=== PATIENT | male | born 1945 | race Caucasian/White ===

== ENCOUNTER → 2016-12-14 | Outpatient (CLI) | payer OTHER ==
[~2016-12-14] MED LIST: ASCO10003 PO; ASPEC81 PO; CHOL1CAP57 PO; FLNIN NAE; HYDR-5688 PO; LOSA50TA54 PO; MULT-506 PO; POTASSIUM OTC PO; SAW PALMETTO PO; XNX25 PO; ZINC1TAB PO; [UNRECOGNIZED DRUG - CODE] PO
== END | disposition home or self-care (01) ==
LOC: C.PATHSPEC 10:54
PROVIDERS: ATTEND Plastic Surgery
DX: L57.0 Actinic keratosis (principal); L82.1 Other seborrheic keratosis

== ENCOUNTER → 2017-03-20 | Outpatient (CLI) | payer OTHER ==
[2017-03-20 13:22] LABS: ALT/SGPT 52 U/L (12-78); AST/SGOT 32 U/L (15-37); BLOOD UREA NITROGEN 18 mg/dl (7-18); BUN/CREATININE RATIO 13.1 (10-20); CALCIUM 8.4 mg/dl (8.5-10.1); CARBON DIOXIDE 25 mmol/L (21-32); CHLORIDE 106 mmol/L (98-107); CREATININE 1.34 mg/dl (0.60-1.40); GLUCOSE 135 mg/dl (70-99); SODIUM 138 mmol/L (136-145)
[2017-03-20 13:27] LABS: CHOLESTEROL 151 mg/dl (0-200); HDL CHOLESTEROL 30 mg/dl; LDL CHOLESTEROL CALCULATED 54 mg/dl; PROSTATE SPECIFIC ANTIGEN 0.198 ng/ml (0.000-4.000); TRIGLYCERIDES 337 mg/dl (0-150); VERY LOW DENSITY LIPOPROT CALC 67 mg/dl
--- NOTE | 2017-04-11 13:43 | CODING QUERY MEDICAL NECESSITY ---
CQSUPPORTING DIAGNOSIS NEEDED A supporting diagnosis is required for the test/procedure performed on this patient in order for us to be reimbursed by the patient's insurance. Please provide a supporting diagnosis for the following test/procedure listed below next to the test name along with your signature. *If there is no additional diagnosis for this patient that would support the following test/procedure please document that below next to the test/procedure. Test(s)/Procedure(s) that require a supporting diagnosis: DOS 03/20/17 PROSTATE SPECIFIC TEST Provider Signature: Date: Thank you Addis Guzman [employer] Once completed, please kindly fax back to [phone] For questions please call [phone]
== END | disposition home or self-care (01) ==
LOC: C.LABMFLN 08:37
PROVIDERS: ATTEND Family Medicine
DX: E78.5 Hyperlipidemia, unspecified (principal); I10 Essential (primary) hypertension

== ENCOUNTER 2024-11-19 07:10 | Inpatient (IN) ==
--- NOTE | 2024-10-26 15:09 | PAT Medication Instructions ---
Medication Instructions Date of Service October 26, 2024 Home Medications Medication Instructions Recorded ascorbic acid (vitamin C) 1,000 mg 1 gm PO DAILY #90 tabs 12/31/18 tablet aspirin 81 mg tablet,delayed 81 mg PO DAILY #90 tabs 12/31/18 release (Adult Low Dose Aspirin) multivitamin,qy-tqmv-lhpanrsc 1 tab PO DAILY #30 tabs 12/31/18 (Complete Multivitamin tablet) vitamin E (dl, acetate) 450 mg 1,000 units PO DAILY #30 caps 12/31/18 (1,000 unit) capsule zinc acetate 50 mg (zinc) capsule 50 mg PO DAILY #30 caps 12/31/18 fluticasone propionate 50 2 spray intranasal DAILY #47.4 11/05/23 mcg/actuation nasal grams spray,suspension propranolol 20 mg tablet 20 mg PO BID #180 tabs 01/24/24 alprazolam 0.5 mg tablet 0.5 mg PO BID PRN anxiety #60 tabs 09/02/24 hydrocortisone 2.5 % topical cream 1 applic topical BID #30 grams 10/07/24 ascorbic acid (vitamin C) 1,000 mg tablet 1 gm PO DAILY aspirin 81 mg tablet,delayed release (Adult Low Dose Aspirin) 81 mg PO DAILY multivitamin,[id number] (Complete Multivitamin tablet) 1 tab PO DAILY vitamin E (dl, acetate) 450 mg (1,000 unit) capsule 1,000 units PO DAILY zinc acetate 50 mg (zinc) capsule 50 mg PO DAILY riboflavin (vitamin B2) 100 mg tablet 100 mg PO DAILY thiamine HCl (vitamin B1) 100 mg tablet 100 mg PO DAILY fluticasone propionate 50 mcg/actuation nasal spray,suspension 2 spray intranasal DAILY propranolol 20 mg tablet 20 mg PO BID ] alprazolam 0.5 mg tablet 0.5 mg PO BID PRN anxiety hydrocortisone 2.5 % topical cream 1 applic topical BID amoxicillin 875 mg tablet mg PO losartan 50 mg tablet 50 mg PO QAM nystatin 100,000 unit/gram topical cream 1 applic topical BID PRN skin irriation omega-3 fatty acids 1,000 mg capsule 2,000 mg PO QAM potassium 99 mg tablet 99 mg PO QAM Continue as directed fluticasone propionate 50 mcg/actuation nasal spray,suspension 2 spray intranasal DAILY amoxicillin 875 mg tablet mg PO STOP taking 2 weeks before surgery vitamin E (dl, acetate) 450 mg (1,000 unit) capsule 1,000 units PO DAILY zinc acetate 50 mg (zinc) capsule 50 mg PO DAILY omega-3 fatty acids 1,000 mg capsule 2,000 mg PO QAM STOP taking 24 hours before surgery hydrocortisone 2.5 % topical cream 1 applic topical BID nystatin 100,000 unit/gram topical cream 1 applic topical BID PRN skin irritation DO NOT take the morning of surgery ascorbic acid (vitamin C) 1,000 mg tablet 1 gm PO DAILY multivitamin,[id number] (Complete Multivitamin tablet) 1 tab PO DAILY riboflavin (vitamin B2) 100 mg tablet 100 mg PO DAILY thiamine HCl (vitamin B1) 100 mg tablet 100 mg PO DAILY losartan 50 mg tablet 50 mg PO QAM potassium 99 mg tablet 99 mg PO QAM Take morning of surgery With a small sip of water, OTHERWISE NOTHING TO EAT OR DRINK AFTER MIDNIGHT: aspirin 81 mg tablet,delayed release (Adult Low Dose Aspirin) 81 mg PO DAILY (unless surgeon directed otherwise) propranolol 20 mg tablet 20 mg PO BID alprazolam 0.5 mg tablet 0.5 mg PO BID PRN anxiety (if needed) Take evening before surgery propranolol 20 mg tablet 20 mg PO BID alprazolam 0.5 mg tablet 0.5 mg PO BID PRN anxiety (if needed) Other Notes If you have any questions please call us at [phone] or [phone] or [phone] or [phone]
--- NOTE | 2024-10-29 08:51 | Anesthesiology Consultation ---
Date of Service October 29, 2024 Assessment & Plan (1) Encounter for pre-operative examination: - Check BSG DOS - Infectious disease screening: Per assessment on 10/29/24- No known recent infectious disease contacts or current infectious disease symptoms. - PCP visit (10/26/24): "Ultrasound of left arm showed several left underarm lymph nodes. The largest was 3.3 x 1.[address] Guidry could not clearly feel any of the lymph nodes on his exam. He has another ultrasound ordered. With your history of cat scratches if he finds persistent swollen glands I would try doxycycline 2 times daily for 10 days before getting a biopsy. This is particularly good for Bartonella infection which can happen with cat scratches.. For the vein insufficiency and history of recurrent cellulitis you are using the triamcinolone cream up to 2 times daily as needed. Knee high Support stockings can be of benefit as well.. For the low back pain radiating to both gluteal areas you are to have surgery by Dr Bean on L2 and L3 on 11-19.. For the rash in the groin it has done better with the nystatin cream that you can use 2 times daily as needed.. Blood pressure is well controlled. Doing well with the losartan 50 milligrams daily. Electrolytes and kidney functions are normal. Recheck kidney functions and electrolytes in 6 months.. Sugar had been in the borderline or prediabetic range. We will check the hemoglobin A1c and sugar in 6 months.." Chart Review Chart Review: Acceptable Risk for Surgery (pending evaluation DOS) and Patient seen in Pre Admission Testing Teaching & Discussion Pre-Anesthesia Teaching/Discussion Notes: Instructed NPO after midnight before surgery,except medications with 15 cc of water. Medication instructions provided according to the PAT guidelines. History Surgery Operation Date: 11/19/24 07:45 Proposed Procedures p L2-L4 Decompression, L2-L5 Fusion, L4-L5 Hardware Removal, Spinal Cord Monitoring - Todd Montejo, Height/Weight Height: 5 ft 6.5 in Weight: 103.6 kg Allergies Allergy/AdvReac Type Severity Reaction Status Date / Time Sulfa (Sulfonamide Allergy Mild Skin Verified 10/29/24 08:46 Antibiotics) erruption (ear) Medications Home Medications Medication Instructions Recorded Confirmed Last Taken ascorbic acid (vitamin C) 1,000 mg 1 gm PO DAILY #90 tabs 12/31/18 10/26/24 Unknown tablet aspirin 81 mg tablet,delayed 81 mg PO DAILY #90 tabs 12/31/18 10/26/24 Unknown release (Adult Low Dose Aspirin) multivitamin,yr-uxtk-[id number] 1 tab PO DAILY #30 tabs 12/31/18 10/26/24 Unknown (Complete Multivitamin tablet) vitamin E (dl, acetate) 450 mg 1,000 units PO DAILY #30 caps 12/31/18 10/26/24 Unknown (1,000 unit) capsule zinc acetate 50 mg (zinc) capsule 50 mg PO DAILY #30 caps 12/31/18 10/26/24 Unknown riboflavin (vitamin B2) 100 mg 100 mg PO DAILY 10/03/23 10/26/24 Unknown tablet thiamine HCl (vitamin B1) 100 mg 100 mg PO DAILY 10/03/23 10/26/24 Unknown tablet fluticasone propionate 50 2 spray intranasal DAILY #47.4 11/05/23 10/26/24 Unknown mcg/actuation nasal grams spray,suspension propranolol 20 mg tablet 20 mg PO BID #180 tabs 01/24/24 10/26/24 Unknown alprazolam 0.5 mg tablet 0.5 mg PO BID PRN anxiety #60 tabs 09/02/24 10/26/24 Unknown hydrocortisone 2.5 % topical cream 1 applic topical BID #30 grams 10/07/24 10/26/24 Unknown amoxicillin 875 mg tablet mg PO 10/26/24 10/26/24 Unknown losartan 50 mg tablet 50 mg PO QAM 10/26/24 10/26/24 Unknown nystatin 100,000 unit/gram topical 1 applic topical BID PRN skin 10/26/24 10/26/24 Unknown cream irriation omega-3 fatty acids 1,000 mg 2,000 mg PO QAM 10/26/24 10/26/24 Unknown capsule potassium 99 mg tablet 99 mg PO QAM 10/26/24 10/26/24 Unknown Past Medical History Medical History Anxiety Chronic back pain Dermatitis History of COVID-19 (04/2024) mild symtoms, resolved HLD (hyperlipidemia) Hx of basal cell carcinoma Hypertension Hypothyroidism Lumbar stenosis with neurogenic claudication Peripheral neuropathy Prediabetes Per records, patient denies 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 forearm Venous insufficiency of lower extremity Exercise / Class Metabolic Activity II 4-5 Yardwork/Stairs/Walk up hill (one FS: No CP, no SOB) Past Family History Family History Mother CHF (congestive heart failure) Father CHF (congestive heart failure) Grandmother (Maternal) Cancer Grandfather (Maternal) Cancer Other Prostate cancer Past Surgical History Surgical History History of back surgery (2009) L4-5 History of dental surgery 10/27/24 teeth extraction, implant History of ear surgery Saliva gland, chin area Hx of basal cell carcinoma excision Hx of colonoscopy Hx of squamous cell carcinoma excision Past Anesthesia History No Hx of Anesthesia Complications and No Family Hx of Anesthesia Complications History of PONV No Hx of PONV and No Hx of Motion Sickness Social History Smoking Status: Never smoker Do You Dip or Chew Tobacco: No Hx Alcohol Use: Yes Alcohol type: hard liquor alcohol intake frequency: 0-2 drinks per day (1 shot per night prior to bed) Hx Substance Use: No substance use type: does not use Review of Systems Patient denies chest pain, shortness of breath, dyspnea on exertion, fever, chills, cough, wheezing. Physical Exam Vital Signs BP 119/60 P 62 TEMP 98.7 SP02 96%RA RESP 16 Physical Full cervical extension range of motion. Full TMJ range of motion. TMD 3 finger breaths Mallampati Score III Dentition: missing teeth, + implants/dental restorations, upper front crowns /caps Lungs: clear throughout to auscultation Cardiac: regular rate and rhythm, no murmurs noted Spine: normal Carotid arteries: negative bruit Extremities: no LE edema Lab Results Anesthesia Preop Results Results Anesthesia Widget: WBC 8.76 K/ul (4.8-10.8) 10/29/24 Hgb 15.5 g/dl (14.0-18.0) 10/29/24 Hct 46.5 % (42.0-52.0) 10/29/24 Plt 253 K/uL (130-400) 10/29/24 Na 138 mmol/L (136-145) 10/29/24 K 4.3 mmol/L (3.5-5.1) 10/29/24 Cl 106 mmol/L (98-107) 10/29/24 CO2 25 mmol/L (21-32) 10/29/24 BUN 16 mg/dl (6-23) 10/29/24 Creat 1.15 mg/dl (0.6-1.4) 10/29/24 Glucose Level 139 mg/dl (70-99(Fasting)) H 10/29/24 PT 10.9 Seconds (9.0-12.0) 10/29/24 PTT 28 Seconds (21-31) 10/29/24 INR 1.0 (0.9-1.1) 10/29/24 Urine Color Dark Yellow 10/29/24 Urine Appearance Clear (Clear) 10/29/24 Urine pH 5.5 (4.5-7.5) 10/29/24 Urine Specific [place] 1.019 (1.000-1.030) 10/29/24 Urine Protein Negative (Negative) 10/29/24 Urine Glucose (UA) Negative (Negative) 10/29/24 Urine Ketones Trace (Negative) H 10/29/24 Urine Blood Negative (Negative) 10/29/24 Urine Nitrite Negative (Negative) 10/29/24 Urine Bilirubin Negative (Negative) 10/29/24 Urine Urobilinogen Negative (Negative) 10/29/24 Urine Leukocyte Esterase Negative (Negative) 10/29/24 Blood Type O Positive 10/29/24 Antibody Screen NEGATIVE 10/29/24 Testing Laboratory Results HGBA1C 04/16/24: 5.4% Electrocardiogram Date: 10/29/24 NSR at 65bpm. "Normal ECG" Chest X-Ray Date: 05/25/24 Findings: + NAD Stress Test Date: 09/21/22 No evidence of inducible ischemia at workload achieved. Poor exercise tolerance which limits exam sensitivity. 4.60 METS. 98% MPHR. Rest Echo: EF 64%. No significant valvular disease.
[2024-11-19] MEDS: LR 15ML/HR IV SCH (08:03)
[2024-11-19] MEDS: ACETAMINOPHEN 500 MG TAB PO SCH (08:05)
[2024-11-19] MEDS: GABAPENTIN 300 MG CAP PO SCH (08:05)
[2024-11-19] MEDS: CeleBREX 200 MG CAP PO SCH (08:05)
[2024-11-19] MEDS ORDERED: ATROPINE SULFATE 0.1 MG/ML 10ML SYR IV PRN (08:54)
[2024-11-19] MEDS ORDERED: ONDANSETRON INJ 2 MG/ML 2 ML VIAL IV PRN ×2 (08:54→14:48)
[2024-11-19] MEDS ORDERED: HYDROmorphone INJ 1 MG/ML SYRINGE IV PRN ×2 (08:54→14:48)
[2024-11-19] MEDS ORDERED: ONDANSETRON INJ 2 MG/ML 2 ML VIAL ONE (09:00)
[2024-11-19] MEDS ORDERED: LIDOCAINE 2% 2 ML VIAL/AMP(20MG/ML) INFIL ONE (09:00)
[2024-11-19] MEDS ORDERED: ROCURONIUM BROMIDE 10 MG/ML 5 ML VIAL IV ONE ×2 (09:00→12:09)
[2024-11-19] MEDS ORDERED: DEXAMETHASONE SOD INJ 4 MG/ML VIAL ONE (09:00)
[2024-11-19] MEDS ORDERED: PROPOFOL IV EMULSION 10 MG/ML 20 ML VIAL IV ONE (09:00)
--- NOTE | 2024-11-19 09:57 | History & Physical Bridge Note ---
Date of Service November 19, 2024 History & Physical Bridge Note I have examined the patient, reviewed the History & Physical and in the interval since the performance of the History & Physical I have noted the following changes of clinical significance: no changes noted
--- NOTE | 2024-11-19 10:00 | History & Physical Report ---
Date of Service November 19, 2024 Assessment & Plan (1) Lumbosacral spondylosis with radiculopathy: Plan: L2-L4 decompression, L2-L5 fusion,. L4-L5 hardware removal History of Present Illness Chief Complaint: Back and bilateral leg pain Primary Care Provider: Anish Singh MD This is a 79-year-old male who presents with chronic persistent back and leg pain after failing since course of nonoperative care is here for surgical invention. Allergies Allergy/AdvReac Type Severity Reaction Status Date / Time Sulfa (Sulfonamide Allergy Mild Skin Verified 10/29/24 08:46 Antibiotics) erruption (ear) Home Medications Medication Instructions Recorded Confirmed Type ascorbic acid (vitamin C) 1,000 mg 1 gm PO DAILY #90 tabs 12/31/18 11/19/24 Rx tablet aspirin 81 mg tablet,delayed 81 mg PO DAILY #90 tabs 12/31/18 11/19/24 Rx release (Adult Low Dose Aspirin) multivitamin,dp-rpka-qmzyyzgw 1 tab PO DAILY #30 tabs 12/31/18 11/19/24 Rx (Complete Multivitamin tablet) vitamin E (dl, acetate) 450 mg 1,000 units PO DAILY #30 caps 12/31/18 11/19/24 Rx (1,000 unit) capsule zinc acetate 50 mg (zinc) capsule 50 mg PO DAILY #30 caps 12/31/18 11/19/24 Rx riboflavin (vitamin B2) 100 mg 100 mg PO DAILY 10/03/23 11/19/24 History tablet thiamine HCl (vitamin B1) 100 mg 100 mg PO DAILY 10/03/23 11/19/24 History tablet fluticasone propionate 50 2 spray intranasal DAILY #47.4 11/05/23 11/19/24 Rx mcg/actuation nasal grams spray,suspension propranolol 20 mg tablet 20 mg PO BID #180 tabs 01/24/24 11/19/24 Rx alprazolam 0.5 mg tablet 0.5 mg PO BID PRN anxiety #60 tabs 09/02/24 11/19/24 Rx hydrocortisone 2.5 % topical cream 1 applic topical BID #30 grams 10/07/24 11/19/24 Rx amoxicillin 875 mg tablet 875 mg PO 2XD 10/26/24 11/19/24 History losartan 50 mg tablet 50 mg PO QAM 10/26/24 11/19/24 History nystatin 100,000 unit/gram topical 1 applic topical BID PRN skin 10/26/24 11/19/24 History cream irriation omega-3 fatty acids 1,000 mg 2,000 mg PO QAM 10/26/24 11/19/24 History capsule potassium 99 mg tablet 99 mg PO QAM 10/26/24 11/19/24 History cholecalciferol (vitamin D3) 125 125 mcg PO DAILY 11/19/24 11/19/24 History mcg (5,000 unit) tablet (Vitamin D3) Past Med/Surg History Problem List (Updated 11/19/24 @ 09:58 by Todd Montejo, DO) Lumbosacral spondylosis with radiculopathy Encounter for pre-operative examination Hypertension Basal cell carcinoma Dermatitis Lymphadenopathy, axillary Lumbar stenosis with neurogenic claudication Seborrhea of face Venous insufficiency of lower extremity Prediabetes Hypothyroidism Anxiety (Chronic) Fatty liver (Chronic) Hyperlipidemia (Chronic) Benign essential hypertension (Chronic) Peripheral neuropathy (Chronic) Medical History Anxiety Chronic back pain Dermatitis History of COVID-19 (04/2024) mild symtoms, resolved HLD (hyperlipidemia) Hx of basal cell carcinoma Hypertension Hypothyroidism Lumbar stenosis with neurogenic claudication Peripheral neuropathy Prediabetes Per records, patient denies 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 forearm Venous insufficiency of lower extremity Surgical History History of back surgery (2009) L4-5 History of dental surgery 10/27/24 teeth extraction, implant History of ear surgery Saliva gland, chin area Hx of basal cell carcinoma excision Hx of colonoscopy Hx of squamous cell carcinoma excision Family History Mother CHF (congestive heart failure) Father CHF (congestive heart failure) Grandmother (Maternal) Cancer Grandfather (Maternal) Cancer Other Prostate cancer Social History Smoking Status: Never smoker Second Hand Exposure: No; Do You Dip or Chew Tobacco: No; Tobacco Cessation Education Requested by Patient: No Hx Alcohol Use: Yes Alcohol type: hard liquor Hx Substance Use: No Preferred Language: Mongolian Communication Ability: Effective Alkylation Operator Required: No Beliefs That Will Affect Care: None marital status: Current Living Situation: Spouse current occupational status: retired How many Children do You have: 2 Other Information That Helps Us Care for You: No Feels Safe at Home: Yes Safety Concerns: Feels Safe At This Time caffeine: No during the past year weight has: remained stable Seatbelt Use: always Sunscreen Use: Yes Assistive Devices: Glasses Physical Exam Physical Exam: Patient is alert and oriented Heart regular rhythm Lungs clear Results & Data Results & Data Vital Signs (Past 12 Hours) Vital Signs Temp Pulse Resp BP Pulse Ox O2 Del Method 11/19/24 07:35 36.5 C 61 18 155/87 H 93 Room Air
[2024-11-19] MEDS ORDERED: HYDROmorphone INJ 2 MG/ML SYR/VIAL ONE (10:57)
[2024-11-19] MEDS: BUPIVACAINE/EPINEPHRINE 0.25% 1:200,000 30 ML VIAL ONE (11:13)
[2024-11-19] MEDS ORDERED: SUGAMMADEX SODIUM 200 MG/2 ML VIAL IV ONE (12:09)
[2024-11-19] MEDS: ceFAZolin 330 MG/ML 1 GM VIAL ONE (12:29)
[2024-11-19] MEDS: FLOSEAL HEMOSTATIC MATRIX 10ML TOP ONE (12:47)
--- NOTE | 2024-11-19 12:59 | Operative Report ---
Post Operative Report Pre & Post Diagnosis Operation Date: 11/19/24 09:55 Pre-Op Diagnosis: #1 Two-Level Lumbosacral Spondylosis with Radiculopathy Post-Op Diagnosis: Same I identified the patient and participated in the time-out.: Yes Procedure Operation Date: 11/19/24 09:55 Actual Procedures #1 removal of posterior instrumentation L4-5 #2 exploration of fusion L4-5 #3 lumbar decompression with bilateral facetectomies and foraminotomies L2-L3 L3- L4. #4 posterior spinal fusion L2-L3 L3-L4 #5 placed posterior instrumentation L2-L5 using Blakely. #6 placement of the harvested morselized autograft and posterior gutters. #7 placed infuse collagen sponge combined with Koros in the posterior gutters. #8 application of versa wrap of the exposed dura. Surgeon Todd Montejo, DO Developer Relations Manager Freddie Escoto Estimated Blood Loss 400 Findings See Below The patient is 5 foot 6 weighs over 104 kg with a BMI in excess of 36. Patient's but happy to contribute to significant technical difficulty with positioning exposure and the procedure itself and at least 50% increased operative time. Specimens None Indications This is an 79-year-old male well-known to me that presents with significant lumbar spondylosis and leg weakness. Subsequently here for surgical invention. Description of Procedure Patient was met with identified appointments and obtained. Patient was then taken to the operative suite underwent intubation placed in a prone position on the [place] table top Will frame. All bony prominences well-padded I suspected to ensure no external pressure placed upon them. This point lumbar spine is prepped and draped sterile fashion. Sharp dissection with the assistance of Bovie cautery from down to and exposing the lamina and transverse processes of L2-L3 and the instrumentation at L4-L5 bilaterally. And then proceeded to move the hardware bilaterally explored the fusion mass noted to be mature and intact. Then performed complete laminectomy of L3 with bilateral medial facetectomies and foraminotomies followed by complete laminectomy of L2 with bilateral medial facetectomies and foraminotomies addressing severe neural compression. Pedicle screws then placed in L2 L3-L4-L5 bilaterally with assistance of fluoroscopy in the process of baron locked into position. The transverse processes of L2-L3-L4. Use of cortical pain bone. Infuse collagen sponge, the close and local autograft placed posterior gutters. First wrap pl aced over the exposed dura. 15 round MICA drain inserted. The incision was then closed with 1 Vicryl in the fascia 2-0 Vicryl subcutaneously and 4-0 Monocryl for final skin closure. Steri-Strips sterile dressing placed. Patient waken taken to PACU in stable condition. Please note Freddie Tigist was present at the entire surgery and while the patient positioning complex post of the surgery and final skin closure. Im ordering 10 grams of Collagen Powder ([facility] A6010 Primary Dressing) and 10 bordered super absorbent ([facility] A6196 Secondary Dressing) to treat an incision wound that was caused by a spine procedure. The incision is approximately 2 cm(W) x 2 cm(L) down to the spinal column and epidural space 2 cm (D) in size and is a full thickness wound showing no signs of infection. Collagen comes in 1 gram packets so 10 packets were ordered. Given the size of the wound, with moderate exudate I chose to order a 10 day supply. The patient will be provided instructions for proper application of the collagen wound kit. The patient will be asked to apply the collagen powder daily and then cover it with sterile dressings dispensed. Collagen was selected as I expect the collagen to attract monocytes and fibroblasts, act as a sacrificial substrate for MMPs, and ultimately proved a matrix for tissue and vessel growth. The collagen will act as a primary dressing in this scenario. It is medically necessary for proper healing of these wounds to improve bioavailability and contact with each wound surface, this is also to help prevent infection of wounds and promote healing ultimately leading to a better healing outcome and limit the risk of infection. I attest to the content of the Intraoperative Record and any orders documented therein. Any exceptions are noted below.
--- NOTE | 2024-11-19 13:16 | Fluoroscopy Report ---
FL lumbar spine 2-3V CLINICAL HISTORY: L2-L5 COMPARISON STUDY: Lumbar spine MRI October 29, 2024. Fluoroscopy time: 20 seconds. Number of fluoroscopic images: 2 Ka,r: 15.99 mGy. FINDINGS: Fluoroscopy was provided during hardware removal and subsequent multilevel decompression. P revious L4-L5 interbody spacer is noted. Bilateral pedicle screw fusion from L2 through L5 is noted. Linear radiodensities within the operative bed on the initial image are not present on the subsequent image. IMPRESSION: Fluoroscopy provided during hardware removal and subsequent L2-L5 decompression and fusi on. ACT 112: Negative or not required by law. Electronically signed by: Jose Pena M.D. 11/19/2024 1:15 PM
[2024-11-19] MEDS ORDERED: NALOXONE HCL 0.4 MG/1 ML VIAL/CARP IV PRN (14:48)
[2024-11-19] MEDS ORDERED: ALUMINUM/MAGNESIUM SUSP 30 ML UDC PO PRN (14:48)
[2024-11-19] MEDS ORDERED: PROMETHAZINE 12.5 MG/50.5 ML BAG IV PRN (14:48)
[2024-11-19] MEDS ORDERED: DO NOT ADMINISTER FLU VACCINE PRN (14:48)
[2024-11-19] MEDS ORDERED: SOD PHOSPHATE/SOD BIPHOSPHATE ENEMA 132 ML BTL PR PRN (14:48)
[2024-11-19] MEDS ORDERED: HYDROmorphone INJ 0.5 MG/0.5 ML SYR IV PRN (14:48)
[2024-11-19] MEDS ORDERED: diphenhydrAMINE Capsule 25 MG CAP PO PRN (14:48)
[2024-11-19] MEDS ORDERED: FAMOTIDINE 20 MG TAB PO PRN (14:48)
[2024-11-19] MEDS ORDERED: ACETAMINOPHEN 1,000 MG/100 ML VIAL IV PRN (14:48)
[2024-11-19] MEDS ORDERED: LORazepam 0.5 MG TAB PO PRN (14:48)
[2024-11-19] MEDS ORDERED: ONDANSETRON 4 MG OD TAB PO PRN (14:48)
[2024-11-19] MEDS ORDERED: DO NOT ADMINISTER PNEUMOCOCCAL VACCINE PRN (14:48)
[2024-11-19] MEDS ORDERED: METOCLOPRAMIDE HCL INJ 5 MG/ML 2 ML VIAL IV PRN (14:48)
[2024-11-19] MEDS: LR 60ML/HR IV SCH (15:08)
--- NOTE | 2024-11-19 15:53 | Hospitalist Consultation ---
Date of Consultation November 19, 2024 Assessment & Plan (1) Benign essential hypertension: (2) Anxiety: (3) CKD (chronic kidney disease), stage III: Plan 79 y/o who underwent back surgery today, described below. Asked by Dr. Montejo to evaluate hypertension, anxiety, CKD. Operation Date: 11/19/24 09:55 Actual Procedures #1 removal of posterior instrumentation L4-5 #2 exploration of fusion L4-5 #3 lumbar decompression with bilateral facetectomies and foraminotomies L2-L3 L3- L4. #4 posterior spinal fusion L2-L3 L3-L4 #5 placed posterior instrumentation L2-L5 using Blakely. #6 placement of the harvested morselized autograft and posterior gutters. #7 placed infuse collagen sponge combined with Koros in the posterior gutters. #8 application of versa wrap of the exposed dura. Surgeon Todd Montejo, DO -postop management per Dr. Montejo -AM CBC -discontinued lorazepam since he already has xanax prn that he uses at home. reviewed orders. HTN - continue losartan 50 mg po qAM (start tomorrow) and propranolol 20 mg po bid (start tonight), monitor BP Anxiety - continue prn alprazolam 0.5 mg bid CKD-3 - baseline Cr 1.2-1.3, stable since 2017 - avoid excessive nsaids and nephrotoxins - continue ARB -AM BMP ordered hx prediabetes according to chart. Giorgio denies. Last A1c in 04/2024 normal 5.4% DVT ppx - SCDs, defer chemoppx to spine surgeon Thank you for allowing me to participate in Giorgio's care. I will sign off, but I will check on his labs and BP tomorrow AM. Please page me with any questions or concerns. History of Present Illness Reason for Consultation: Evaluate hypertension, diabetes, CKD Requesting Physician: Dr. Montejo Attending Physician: Todd Montejo, History of Present Illness 79 y/o man with lumbar radiculopathy who underwent decompression and fusion at L4-[address] Montejo. I saw him postop and Giorgio is feeling okay. His back pain is at the operative site and more on the left than the right. Nonradiating. Feels that LE strength has improved compared to preop. Pain improved after oral oxycodone. Still has tomlinson no drain. No shortness of breath or chest pain. No N/V/D or abdominal pain. No dysuria. He takes losartan for high bp and takes propranolol primarily for tremor. No history of cardiac or pulmonary problems. Has deviated septum with frequent R nare stuffiness improved by flonase and lying on L side. Hoping to go home postop. Allergies Allergy/AdvReac Type Severity Reaction Status Date / Time Sulfa (Sulfonamide Allergy Mild Skin Verified 10/29/24 08:46 Antibiotics) erruption (ear) Home Medications Medication Instructions Recorded Confirmed Type ascorbic acid (vitamin C) 1,000 mg 1 gm PO DAILY #90 tabs 12/31/18 11/19/24 Rx tablet aspirin 81 mg tablet,delayed 81 mg PO DAILY #90 tabs 12/31/18 11/19/24 Rx release (Adult Low Dose Aspirin) multivitamin,[id number] 1 tab PO DAILY #30 tabs 12/31/18 11/19/24 Rx (Complete Multivitamin tablet) vitamin E (dl, acetate) 450 mg 1,000 units PO DAILY #30 caps 12/31/18 11/19/24 Rx (1,000 unit) capsule zinc acetate 50 mg (zinc) capsule 50 mg PO DAILY #30 caps 12/31/18 11/19/24 Rx riboflavin (vitamin B2) 100 mg 100 mg PO DAILY 10/03/23 11/19/24 History tablet thiamine HCl (vitamin B1) 100 mg 100 mg PO DAILY 10/03/23 11/19/24 History tablet fluticasone propionate 50 2 spray intranasal DAILY #47.4 11/05/23 11/19/24 Rx mcg/actuation nasal grams spray,suspension propranolol 20 mg tablet 20 mg PO BID #180 tabs 01/24/24 11/19/24 Rx alprazolam 0.5 mg tablet 0.5 mg PO BID PRN anxiety #60 tabs 09/02/24 11/19/24 Rx hydrocortisone 2.5 % topical cream 1 applic topical BID #30 grams 10/07/24 11/19/24 Rx amoxicillin 875 mg tablet 875 mg PO 2XD 10/26/24 11/19/24 History losartan 50 mg tablet 50 mg PO QAM 10/26/24 11/19/24 History nystatin 100,000 unit/gram topical 1 applic topical BID PRN skin 10/26/24 11/19/24 History cream irriation omega-3 fatty acids 1,000 mg 2,000 mg PO QAM 10/26/24 11/19/24 History capsule potassium 99 mg tablet 99 mg PO QAM 10/26/24 11/19/24 History cholecalciferol (vitamin D3) 125 125 mcg PO DAILY 11/19/24 11/19/24 History mcg (5,000 unit) tablet (Vitamin D3) Patient History Medical History Lumbar stenosis with neurogenic claudication Venous insufficiency of lower extremity Anxiety HLD (hyperlipidemia) Hypothyroidism Peripheral neuropathy Prediabetes Per records, patient denies Chronic back pain Dermatitis History of COVID-19 (04/2024) mild symtoms, resolved Hypertension Hx of basal cell carcinoma 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 forearm Surgical History History of dental surgery 10/27/24 teeth extraction, implant Hx of basal cell carcinoma excision Hx of squamous cell carcinoma excision Hx of colonoscopy History of ear surgery Saliva gland, chin area History of back surgery (2009) L4-5 Family History Mother CHF (congestive heart failure) Father CHF (congestive heart failure) Grandmother (Maternal) Cancer Grandfather (Maternal) Cancer Other Prostate cancer Social History Smoking Status: Never smoker Second Hand Exposure: No; Do You Dip or Chew Tobacco: No; Tobacco Cessation Education Requested by Patient: No Hx Alcohol Use: Yes Alcohol type: hard liquor Hx Substance Use: No Preferred Language: Yi Communication Ability: Effective 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 Required: No Beliefs That Will Affect Care: None marital status: Current Living Situation: Spouse current occupational status: retired How many Children do You have: 2 Other Information That Helps Us Care for You: No Feels Safe at Home: Yes Safety Concerns: Feels Safe At This Time caffeine: No during the past year weight has: remained stable Seatbelt Use: always Sunscreen Use: Yes Assistive Devices: Glasses Review of Systems Review of Systems: All systems reviewed & are unremarkable except as noted in HPI & below Physical Exam Physical Exam: Last 24h vitals reviewed GEN: no acute distress, sitting in bed, woke easily from napping HEENT: pupils equal, sclerae anicteric, moist MM RESP: normal WOB, CTAB CV: reg no mrg ABD: soft/nt/nd +BT : no tomlnison SKIN: warm and dry, no generalized rashes NEURO: AOx person, place, and situation. Face symmetric, speech normal, moves 4 ext spontaneously and equally. Dorsi and plantar flexion of LE are 5/5 and sensation intact to LT Results & Data Results & Data Vital Signs (Past 12 Hours) Vital Signs Temp Pulse Pulse Resp BP Pulse Ox O2 Del Method 11/19/24 15:20 36.3 C L 65 16 116/70 95 Nasal Cannula 11/19/24 14:50 36.3 C L 68 16 120/76 92 Nasal Cannula 11/19/24 14:30 36.3 C L 64 18 129/66 93 Nasal Cannula 11/19/24 14:20 66 18 122/64 94 Nasal Cannula 11/19/24 14:10 68 12 116/67 93 Nasal Cannula 11/19/24 14:00 62 14 121/71 94 Oxymask 11/19/24 13:50 65 16 121/73 94 Oxymask 11/19/24 13:40 68 16 132/68 95 Oxymask 11/19/24 13:29 36 C L 63 14 120/58 L 96 Oxymask 11/19/24 07:35 36.5 C 61 18 155/87 H 93 Room Air O2 Flow Rate 11/19/24 15:20 3 11/19/24 14:50 3 11/19/24 14:30 3 11/19/24 14:20 3 11/19/24 14:10 3 11/19/24 14:00 4 11/19/24 13:50 6 11/19/24 13:40 6 11/19/24 13:29 8 11/19/24 07:35 Laboratory Results Labs 10/29 reviewed W8, Hg15, [id number] - all normal normal coags, normal BMP Cr 1.15 GFR 64 LFT normal UA neg PG Care Time/CCT Total # of Minutes Spent Total Time Spent with Patient: Total time spent is greater than 50% in coordination of care (as documented) at patient's floor/unit and/or counseling patient: Coding Level of Care Code 44864 IN/OBS CONSULT LVL 3,45M Diagnoses Benign essential hypertension I10 Anxiety F41.9 CKD (chronic kidney disease), stage III N18.30
[2024-11-19] MEDS: Nursing to Pharmacy Communication SCH (15:56)
[2024-11-19] MEDS: General Order Problem(s) SCH (15:57)
--- NOTE | 2024-11-19 16:31 | Anesthesiology Progress Note ---
Date of Service November 19, 2024 Anesthesia Post Procedure Vital Signs Vital Signs: Temp Pulse Pulse Resp BP Pulse Ox O2 Del Method 11/19/24 15:52 36.3 C L 65 16 129/84 94 Nasal Cannula 11/19/24 15:20 36.3 C L 65 16 116/70 95 Nasal Cannula 11/19/24 14:50 36.3 C L 68 16 120/76 92 Nasal Cannula 11/19/24 14:30 36.3 C L 64 18 129/66 93 Nasal Cannula 11/19/24 14:20 66 18 122/64 94 Nasal Cannula 11/19/24 14:10 68 12 116/67 93 Nasal Cannula 11/19/24 14:00 62 14 121/71 94 Oxymask 11/19/24 13:50 65 16 121/73 94 Oxymask 11/19/24 13:40 68 16 132/68 95 Oxymask 11/19/24 13:29 36 C L 63 14 120/58 L 96 Oxymask 11/19/24 07:35 36.5 C 61 18 155/87 H 93 Room Air O2 Flow Rate 11/19/24 15:52 3 11/19/24 15:20 3 11/19/24 14:50 3 11/19/24 14:30 3 11/19/24 14:20 3 11/19/24 14:10 3 11/19/24 14:00 4 11/19/24 13:50 6 11/19/24 13:40 6 11/19/24 13:29 8 11/19/24 07:35 Pain Intensity Back: Pain Intensity: 7 Transfer of Care Handoff Completed per policy Notes Mental Status: alert / awake / arousable Patient Amnestic to Procedure: Yes Nausea / Vomiting: adequately controlled Pain: adequately controlled Airway Patency, RR, SpO2: stable & adequate BP & HR: stable & adequate Hydration State: stable & adequate Anesthetic Complications: no major complications apparent and Pt Satisfied with anesthetic care
[2024-11-19] MEDS: PROPRANOLOL HCL 20 MG TAB PO SCH (21:09)
[2024-11-19] MEDS: DOCUSATE SODIUM/SENNA 50/8.6MG TAB PO SCH (21:09)
[2024-11-19] MEDS: ACETAMINOPHEN 500 MG TAB PO PRN (23:29)
[2024-11-20 06:10] LABS: Hematocrit (blood only) 39.9 % (42.0-52.0); Hemoglobin 13.4 g/dl (14.0-18.0); Mean Corpuscular Hemoglobin 30.1 pg (25.0-34.0); Mean Corpuscular Volume 89.7 fL (80.0-100.0); Platelet Count 260 K/uL (130-400); RDW Standard Deviation 49.0 fL (36.4-46.3); Red Blood Count 4.45 M/uL (4.70-6.10); White Blood Count 19.49 K/ul (4.8-10.8)
[2024-11-20 06:11] LABS: Immature Granulocytes # (auto) 0.10 K/uL (0.01-0.20); Immature Granulocytes % (auto) 0.5 %
[2024-11-20] MEDS: POLYETHYLENE (MIRALAX) 17 GM PACK PO SCH (06:26)
[2024-11-20 06:32] LABS: Anion Gap 8.0 (3-11); Blood Urea Nitrogen 27.0 mg/dl (6-23); Calcium 8.3 mg/dl (8.6-10.3); Carbon Dioxide 27.0 mmol/L (21-32); Chloride 100.0 mmol/L (98-107); Creatinine Clr Calc Pharmacy 47.8 ml/min; Glucose 135.0 mg/dl (70-99(Fasting)); Potassium 5.1 mmol/L (3.5-5.1); Sodium 135.0 mmol/L (136-145)
--- NOTE | 2024-11-20 09:10 | Orthopedic Progress Note ---
Date of Service November 20, 2024 Assessment & Plan (1) Lumbosacral spondylosis with radiculopathy: Plan: At this time we will continue physical therapy monitor his MICA output anticipate discharge home in the next few days. Admission and Anticipated Discharge Date Admission Date: November 19, 2024 Subjective Back pain is controlled leg symptoms markedly improved. He is noticed a difference with ambulation. Physical Exam Physical Exam: Patient is currently in bed. Comfortable. Good strength testing. Results & Data Vital Signs (Past 12 Hours) Vital Signs Temp Pulse Resp BP Pulse Ox O2 Del Method O2 Flow Rate 11/20/24 07:00 36.4 C L 85 16 113/72 98 Room Air 11/20/24 03:38 36.4 C L 76 18 115/68 92 Nasal Cannula 2 11/19/24 23:29 36.4 C L 77 18 112/68 93 Nasal Cannula 2
[2024-11-20] MEDS: dexAMETHasone 6 MG in SYRINGE 0 ML IV SCH (09:56)
[2024-11-20] MEDS: LOSARTAN POTASSIUM 50 MG TAB PO SCH (09:56)
[2024-11-20] MEDS: ZINC SULFATE 220 MG CAPSULE PO SCH (09:57)
[2024-11-20] MEDS: ASPIRIN 81 MG ECTAB PO SCH (09:57)
[2024-11-20] MEDS: CHOLECALCIFEROL 125 MCG (5,000 UNITS) TAB PO SCH (09:57)
[2024-11-20] MEDS: OMEGA-3 (PURIFIED FISH OIL) 1 GM CAP PO SCH (09:58)
[2024-11-20] MEDS: ASCORBIC ACID 500 MG TAB PO SCH (09:58)
[2024-11-20] MEDS: CEROVITE ADV FORMULA TAB PO SCH (09:58)
[2024-11-20] MEDS: THIAMINE HCL 100 MG TAB PO SCH (10:01)
[2024-11-20] MEDS: TOCOPHERYL, DL-ALPHA 400 UNITS 180 MG CAP PO SCH (10:01)
[2024-11-20] MEDS: FLUTICASONE PROPIONATE NA SPR 16 GM BTL SCH (10:02)
--- NOTE | 2024-11-20 16:05 | Hospitalist Progress Note ---
Date of Service November 20, 2024 Assessment & Plan (1) Benign essential hypertension: (2) Anxiety: (3) CKD (chronic kidney disease), stage III: Plan 79 y/o who underwent back surgery today, described below. Asked by Dr. Montejo to evaluate hypertension, anxiety, CKD. Operation Date: 11/19/24 09:55 Actual Procedures #1 removal of posterior instrumentation L4-5 #2 exploration of fusion L4-5 #3 lumbar decompression with bilateral facetectomies and foraminotomies L2-L3 L3- L4. #4 posterior spinal fusion L2-L3 L3-L4 #5 placed posterior instrumentation L2-L5 using Blakely. #6 placement of the harvested morselized autograft and posterior gutters. #7 placed infuse collagen sponge combined with Koros in the posterior gutters. #8 application of versa wrap of the exposed dura. Surgeon Todd Montejo, DO -postop management per Dr. Montejo acute postoperative anemia. Hg 15.5-->13.4 M[address] drain still in place -oral iron q48h and follow up with PCP HTN - continue losartan 50 mg po qAM and propranolol 20 mg po bid (for tremor) - normotensive today Anxiety - continue prn alprazolam 0.5 mg bid CKD-3 - baseline Cr 1.2-1.3, stable since 2017 - avoid excessive nsaids and nephrotoxins - continue ARB - Cr 1.4 which is close to his baseline hx prediabetes according to chart. Giorgio denies. Last A1c in 04/2024 normal 5.4% DVT ppx - SCDs, defer chemoppx to spine surgeon Thank you for allowing me to participate in Giorgio's care. I will sign off. Please page me with any questions or concerns. Admission and Anticipated Discharge Date Admission Date: November 19, 2024 Subjective feeling pretty good. incisional pain only. legs stronger and no radiating pain Physical Exam 2 Physical Exam: Last 24h vitals reviewed GEN: no acute distress, sitting in bed, awake otherwise exam unchanged 11/20 HEENT: pupils equal, sclerae anicteric, moist MM RESP: normal WOB, CTAB CV: reg no mrg ABD: soft/nt/nd +BT : no tomlinson SKIN: warm and dry, no generalized rashes NEURO: AOx person, place, and situation. Face symmetric, speech normal, moves 4 ext spontaneously and equally. Dorsi and plantar flexion of LE are 5/5 and sensation intact to LT Results & Data Results & Data Vital Signs (Past 12 Hours) Vital Signs Temp Pulse Resp BP Pulse Ox Pulse Ox O2 Del Method 11/20/24 15:13 36.6 C 70 16 110/68 94 Room Air 11/20/24 12:56 93 11/20/24 09:30 Nasal Cannula 11/20/24 07:00 36.4 C L 85 16 113/72 98 Room Air O2 Flow Rate O2 Flow Rate 11/20/24 15:13 11/20/24 12:56 2 11/20/24 09:30 2 11/20/24 07:00 Laboratory Results 11/20/24 05:36 11/20/24 05:36 PG Care Time/CCT Total # of Minutes Spent Total Time Spent with Patient: Total time spent is greater than 50% in coordination of care (as documented) at patient's floor/unit and/or counseling patient: Coding Level of Care Code 41122 SUB INP/OBS CARE 2/35MIN Diagnoses Benign essential hypertension I10 Anxiety F41.9 CKD (chronic kidney disease), stage III N18.30
--- NOTE | 2024-11-21 08:44 | Orthopedic Progress Note ---
Date of Service November 21, 2024 Assessment & Plan (1) Lumbosacral spondylosis with radiculopathy: Plan: At this time we will continue physical therapy monitor his MICA output. He is doing very nicely with occupational therapy and physical therapy. Subsequently we would most likely be able to discharge home versus rehab. Admission and Anticipated Discharge Date Admission Date: November 19, 2024 Subjective Back pain controlled leg symptoms improved Physical Exam Physical Exam: Patient is sitting up in bed. Is comfortable. Distracted testing. Results & Data Vital Signs (Past 12 Hours) Vital Signs Temp Pulse Resp BP Pulse Ox O2 Del Method 11/21/24 07:15 36.6 C 62 16 131/63 93 Room Air 11/20/24 21:14 61 Queries Orthopedic Spine Obesity: Yes
[2024-11-21] MEDS: MAGNESIUM HYDROXIDE SUSP 30 ML UDC PO PRN (12:38)
--- NOTE | 2024-11-22 07:38 | Orthopedic Progress Note ---
Date of Service November 22, 2024 Assessment & Plan (1) Lumbosacral spondylosis with radiculopathy: Plan: Patient is stable status post removal of hardware at L4-5 and L2-4 decompression and fusion. We are going to keep him today given the amount of drainage that he has have encouraged him to get up and walk for exercise. Will continue with GI DVT prophylaxis and pain control measures. Likely discharge him to home tomorrow. Admission and Anticipated Discharge Date Admission Date: November 19, 2024 Subjective Patient was seen bedside in room 321. He is doing well this morning. His legs are feeling much better. They still feel a bit weak especially on the left-hand side. He is having a moderate amount of lower back pain. Overall he feels that he is improving. He denies any other numbness, tingling, or paresthesias. Physical Exam Physical Exam: On exam he is alert and oriented. He appears comfortable. He answers questions appropriately. He is able to move both extremities to gravity. His MICA drain is in place is put out 70 cc on the left shift and 20 on the previous recording. His abdomen soft and nontender his calves are supple and nontender. Strength and sensation are grossly intact cardiovascular exam reveals no gross abnormalities. I have examined the bulb and the drainage is serosanguineous in nature. Results & Data Vital Signs (Past 12 Hours) Vital Signs Temp Pulse Resp BP Pulse Ox O2 Del Method 11/22/24 07:25 36.8 C 58 L 16 121/73 98 Room Air 11/21/24 22:07 64 11/21/24 20:10 36.4 C L 57 L 18 131/70 97 Room Air
[2024-11-23] MEDS: KETOROLAC TROMETHAMINE 15 MG/ML VIAL IV ONE (10:31)
--- NOTE | 2024-11-23 13:11 | Orthopedic Progress Note ---
Date of Service November 23, 2024 Assessment & Plan (1) Lumbar stenosis with neurogenic claudication: Plan: We will continue physical therapy today monitor his progress. Hopefully discharge tomorrow. Admission and Anticipated Discharge Date Admission Date: November 19, 2024 Subjective Patient's back pain is more troublesome today. This MICA drain fell out last evening. He is noting some pain in his left foot. Physical Exam Physical Exam: On exam is good strength testing. Tolerating physical therapy. Results & Data Vital Signs (Past 12 Hours) Vital Signs Temp Pulse Resp BP Pulse Ox O2 Del Method 11/23/24 13:04 36.6 C 64 16 113/67 95 Room Air 11/23/24 07:46 36.7 C 69 17 154/81 H 95 Room Air Queries Orthopedic Spine Obesity: Yes
[2024-11-23 20:55] VITALS: TEMP 99.3
[2024-11-24] MEDS: KETOROLAC TROMETHAMINE 15 MG/ML VIAL IV PRN (02:02)
[2024-11-24 07:30] VITALS: BP 124/83; PULSE 66; RESP 17; O2SAT 95
--- NOTE | 2024-11-24 10:24 | Discharge Summary ---
Date of Service November 24, 2024 Admission HPI Per Admitting Provider This is a 79-year-old male who presents with chronic persistent back and leg pain after failing since course of nonoperative care is here for surgical invention. Principal Diagnosis Lumbar spondylosis with radiculopathy Discharge Data Allergies Allergy/AdvReac Type Severity Reaction Status Date / Time Sulfa (Sulfonamide Allergy Mild Skin Verified 10/29/24 08:46 Antibiotics) erruption (ear) Consultations 11/19/24 14:48 Consult Hospitalist Routine Procedures Performed Operation Date: 11/19/24 09:55 Actual Procedures p L2-L4 Decompression, L2-L5 Fusion, (Not Applicable) - Todd Montejo DO s L4-L5 Hardware Removal(Not Applicable) - Todd Montejo DO Ordered Studies 11/19/24 09:55 FL lumbar spine 2-3V Routine Hospital Course (1) Lumbosacral spondylosis with radiculopathy: Patient underwent multilevel lumbar depression fusion tolerated as well as negative orthopedic for postoperative. Postop he progressed slowly throughout his stay. MICA drain decreasing. Strength improving. Pain controlled. Separately discharged home. Discharge orders and instructions found in chart for further review. Total Time Total Time Spent Total Time Spent (In Minutes): 20 minutes Discharge Plan Discharge Items Patient Disposition: Home - Self-Care Reason For Visit: Two-Level Lumbosacral Spondylosis with Radiculopat Discharge Diagnosis: Lumbar spondylosis with radiculopathy Activity: As commented below Non-emergency contact: Primary Care Provider Call non-emergency contact if: you have any medication questions Follow-up/Referrals: Anish Singh MD [Primary Care Provider] - Diet: Regular Addtl Attending Provider Instructions: ACTIVITY RECOMMENDATIONS: SELF CARE INSTRUCTIONS AFTER THORACIC/LUMBAR FUSIONS 1. You may walk to your tolerance. It is good exercise for your legs and back. Expect some back and intermittent leg aches and pains. 2. You may perform "counter-top" level activities (make a sandwich, chase with a project, etc.). 3. No bending or lifting of more than 10 pounds or back twisting of any nature (roll like a log when turning in bed). 4. You may ride in a car for 20-30 minutes at a time. No driving until after your first visit with your doctor. 5. Frequent changes of position and restricting sitting to 30 minutes at a time will help limit the amount of back spasms and stiffness you may experience. 6. You may discontinue the use of ambulatory aids (cane, crutches, etc.) once your strength and confidence allow. 7. You may lining maker the shower and let water strike your incision when you arrive home at least once daily. Do not take a tub bath, sit in a hot tub or go into a swimming pool until after your first recheck in the office. 8. You may resume previous diet. SPECIAL CARE INSTRUCTIONS: VERY IMPORTANT TO READ AND REVIEW A. Your surgical incision has been closed with a cosmetic suture under the skin that will dissolve in about 6 weeks. In 14 days, you can use a pair of clean scissors and cut the suture that is left outside of the skin at the ends of your incision. 1. The small skin tapes can be removed 7 days after surgery if they have not fallen off by that point. 2. You may keep the wound open to air as much as possible to promote healing after post-op day number 5 unless told otherwise by your doctor. 3. If you think the wound looks like it is becoming infected (redness or worsening drainage) and/or you are experiencing fever, chill or worsening back pain and muscle spasms, contact the office so that we may evaluate you as soon as possible. B. Complications are uncommon, but please contact us if you have any signs or symptoms of: 1. wound infection (fever higher than 102.5 degrees F, redness, separation of wound, drainage, or increasing pain from the incision) 2. blood clots in legs (pain, swelling, redness and warmth in legs) 3. urinary tract infection (fever higher than 102.5 degrees F, burning upon urination or increased frequency of urination) 4. nerve problems (inability to walk on your toes or heels, numbness, loss of bowel or bladder control) 5. any other symptoms that concern you C. Please call the office at if you have any concerns or questions about your operation or recovery. D. No smoking! Smoking drastically decreases the chance of a solid fusion. E. Do not take any anti-inflammatory medications (Indocin, Advil, Motrin, Aspirin, Naprosyn, etc.) as these may inhibit the chance of a solid fusion. Tylenol is okay to take for pain. MANAGING PAIN AFTER SPINAL SURGERY 1. Narcotic medication is intended for short-term use and will be provided for surgical pain. Surgical pain usually lasts for a period of 4-6 weeks. Narcotic medication includes Percocet, Vicodin, Darvocet, Tylenol #3 or Lortab. 2. Longer-term pain is more appropriately treated with non-narcotic medication such as Tylenol ES. 3. Muscle spasm is not appropriately treated with narcotics. Muscle relaxers such as Soma, Flexeril or Skelaxin can be used along with Tylenol ES. 4. Remember that we all live with some "aches and pains". This is not unusual or uncommon after an injury or as we get older. a. Back pain is expected and may include muscle spasms for 4 to 6 weeks after surgery. The pain should gradually improve. If the pain worsens for no apparent reason, please contact the office. b. Intermittent leg pain may also be experienced and should not be concerned about unless it worsens for no apparent reason. If so, please contact the office. 5. We will provide appropriate medication within the normal guidelines of their prescribed use. We will also be very cautious and aware of potential abuse and extended duration of patients' medication needs. a. Pain medications are for your comfort and to assist with sleep and rest so that the tissue can heal. They are not provided in order to return to normal activity and should not be used through the day. To do so or worsening pain at night can result from ongoing tissue damage and development of tolerance to the prescribed medicine. 6. Please allow 2-3 days to process refills. Prescriptions will not be mailed but must be picked up at the office. FOLLOW UP VISIT: Keep your scheduled follow-up appointment. Any questions, please call the office at . Pending Studies at Discharge: No Stand-Alone Forms: [employer], Smoking Cessation Medications and DC Order Prescriptions: New tramadol 50 mg tablet 50 mg PO Q6H PRN (Reason: pain, moderate) Qty: 30 0RF oxycodone 5 mg tablet 5 mg PO Q6H PRN (Reason: pain) Qty: 30 0RF Continued thiamine HCl (vitamin B1) 100 mg tablet 100 mg PO DAILY riboflavin (vitamin B2) 100 mg tablet 100 mg PO DAILY fluticasone propionate 50 mcg/actuation spray,suspension 2 spray INTNAS DAILY Qty: 47.4 3RF Rx Instructions: administer into each nostril propranolol 20 mg tablet 20 mg PO BID Qty: 180 3RF Rx Instructions: for tremor alprazolam 0.5 mg tablet 0.5 mg PO BID PRN (Reason: anxiety) Qty: 60 2RF hydrocortisone 2.5 % cream 1 applic topical BID Qty: 30 1RF Rx Instructions: Apply to areas of the face and ears twice daily for up to 7 days as needed for flaring. aspirin [Adult Low Dose Aspirin] 81 mg tablet,delayed release (DR/EC) 81 mg PO DAILY Qty: 90 3RF Complete Multivitamin tablet 1 tab PO DAILY Qty: 30 0RF ascorbic acid (vitamin C) 1,000 mg tablet 1 gm PO DAILY Qty: 90 3RF zinc acetate 50 mg (zinc) capsule 50 mg PO DAILY Qty: 30 0RF Rx Instructions: swallow whole; do not chew/break/dissolve/open vitamin E (dl, acetate) 1,000 unit capsule 1,000 units PO DAILY Qty: 30 0RF amoxicillin 875 mg tablet 875 mg PO 2XD losartan 50 mg tablet 50 mg PO QAM omega-3 fatty acids 1,000 mg capsule 2,000 mg PO QAM potassium 99 mg tablet 99 mg PO QAM nystatin 100,000 unit/gram cream 1 applic topical BID PRN (Reason: skin irriation) cholecalciferol (vitamin D3) [Vitamin D3] 125 mcg (5,000 unit) Tablet 125 mcg PO DAILY Discharge Orders: Discharge Order (Routine); Ordered 11/24/24 Ordered By: Todd Montejo Admission Data Admit Date/Time: 11/19/24 13:04 Attending Provider: Todd Montejo Admit Provider: Todd Montejo Primary Care Provider: Anish Singh Other Providers: [facility]
--- NOTE | 2024-11-25 13:30 | Coding Query ---
BMI To promote full compliance with coding requirements relating to patient care, physician participation is requested in all cases of automotive designer uncertainty. Please assist us with the question(s) below: Please place an X within the parenthesis (x). If other, please document: BMI ( ) was documented in this record for this patient. If the BMI is significant, please check the box that provides a more specific associated diagnosis: ( ) Overweight/Obese (x ) Obesity ( ) Morbid obesity ( ) Obesity Hypoventilation Syndrome (OHS) ( ) Heathy weight, not significant ( ) Underweight/Thin ( ) Other, please specify Thank you Christy ARTEAGA
--- NOTE | 2024-11-29 07:01 | Coding Query ---
ANEMIA To promote full compliance with coding requirements relating to patient care, physician participation is requested in all cases of subject scientific research uncertainty. Please assist us with the question(s) below: Coding Question(s): The record reflects the following clinical findings: Hg 15.5-->13.4 [address] still in place -oral iron q48h and follow up with PCP If these findings are indicative of anemia, please specify the known or suspected type by placing an "X" within the parenthesis (x). If other, please document type. Examples are: ( ) Acute blood loss anemia (x ) Acute Postoperative blood loss anemia ( ) Acute postoperative anemia due to dilutional fluids ( ) Chronic blood loss anemia ( ) Anemia of chronic disease ( ) Aplastic anemia ( ) Anemia due to renal disease ( ) Anemia in neoplastic disease ( ) Iron deficient anemia ( ) Anemia, unspecified or other ( ) Other: (please specify) Thank you Christy ARTEAGA
== END 2024-11-24 12:20 | disposition home or self-care (01) | DRG 448 ==
LOC: ASU 07:10 → 3E 13:04